=== PATIENT | male | born 1975 | race Two or more races ===

== ENCOUNTER 2019-08-18 13:09 | Emergency (ER) | payer SELFPAY ==
[2019-08-18 13:14] VITALS: BP 166/95
--- NOTE | 2019-08-18 14:15 | ED ---
Laceration/Wound HPI - HPI Summary HPI Summary: This patient is a 43-year-old otherwise healthy male presenting to the ED with a left hand laceration which occurred approximately 6 PM last evening. He states he was cutting something at work when the knife slipped and injured his left palm. History of present illness is obtained through interpreter for the deaf using Kite. Laceration approximately 2 cm in length, very wide yet superficial. Fat exposed. Pain is currently rated a 6/10, constant and aching. Bleeding is well controlled prior to arrival. Last tetanus one year ago. - History of Current Complaint Stated Complaint: LAC LT HAND PER PT Time Seen by Provider: 08/18/19 13:18 Hx Obtained From: Patient Mechanism of Injury: Sharp/Blunt Trauma Onset/Duration: Sudden Onset Aggravating: Movement Alleviating: Compression Timing: Constant Onset Severity: Mild Current Severity: Mild Pain Intensity: 2 Pain Scale Used: 0-10 Numeric Associated Signs & Symptoms: Negative Related Hx: Dominant Hand (Right) - Allergy/Home Medications Allergies/Adverse Reactions: Allergies Allergy/AdvReac Type Severity Reaction Status Date / Time No Known Allergies Allergy Verified 08/18/19 13:14 PMH/Surg Hx/FS Hx/Imm Hx Previously Healthy: Yes - Immunization History Hx Pertussis Vaccination: No Immunizations Up to Date: Yes Infectious Disease History: No Infectious Disease History: Denies: Traveled Outside the [place] in Last 30 Days - Social History Occupation: Employed Full-time Lives: With Family Alcohol Use: None Hx Substance Use: No Substance Use Type: Reports: None Hx Tobacco Use: No Smoking Status (MU): Never Smoked Tobacco Review of Systems Negative: Fever, Chills, Fatigue, Skin Diaphoresis Negative: Palpitations, Chest Pain Negative: Shortness Of Breath, Cough Genitourinary: Negative Positive: no symptoms reported, see HPI Negative: Arthralgia, Myalgia Positive: Other - laceration of the L palm Neurological: Negative All Other Systems Reviewed And Are Negative: Yes Physical Exam Triage Information Reviewed: Yes Vital Signs On Initial Exam: Initial Vitals Temp Pulse Resp BP Pulse Ox 97.9 F 104 16 166/95 99 08/18/19 13:10 08/18/19 13:10 08/18/19 13:10 08/18/19 13:10 08/18/19 13:10 Vital Signs Reviewed: Yes Appearance: Positive: Well-Appearing, Well-Nourished Skin: Positive: Warm, Skin Color Reflects Adequate Perfusion, Other - laceration of the L palm - ulnar side - 2cm in length, 1cm in width, superficial Head/Face: Positive: Normal Head/Face Inspection Eyes: Positive: EOMI, HOWIE, Conjunctiva Clear Neck: Positive: Supple, No Lymphadenopathy Respiratory/Lung Sounds: Positive: Clear to Auscultation, Breath Sounds Present Cardiovascular: Positive: RRR, Pulses are Symmetrical in both Upper and Lower Extremities Musculoskeletal: Positive: Normal, Strength/ROM Intact Psychiatric: Positive: Affect/Mood Appropriate AVPU Assessment: Alert Procedures - Sedation Patient Received Moderate/Deep Sedation with Procedure: No - Laceration/Wound Repair L hand Location: upper extremity Description: Linear Anesthesia: Local, 1.0% Length, Depth and Shape: laceration of the L palm - ulnar side - 2cm in length, 1cm in width, superficial Betadine Prep?: No Irrigated w/ Saline (ccs): 40 Laceration/Wound Explored: clean Suture Type: Prolene - 4-0 Number of Sutures: 5 Layer Closure?: No Sterile Dressing Applied?: No Diagnostics - Vital Signs Vital Signs Temp Pulse Resp BP Pulse Ox 08/18/19 13:52 97.9 F 100 16 166/95 99 08/18/19 13:10 97.9 F 104 16 166/95 99 - Laboratory Lab Statement: Any lab studies that have been ordered have been reviewed, and results considered in the medical decision making process. Laceration Repair Course/Dx - Course Course Of Treatment: Cleanse wound thoroughly. 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 For this reason, closure is warranted. 1ml lidocain without epi used as local anesthetic. 5 sutures using 4-0 prolene using simple interrupted technique. Occlusive gauze wrapped, gauze applied. Patient will have suture removal in 7 days. Given instructions for care. ABX given. - Differential Dx Differental Diagnoses: Laceration - Clinical Impression Provider Diagnoses: Laceration Discharge ED - Sign-Out/Discharge Documenting (check all that apply): Patient Departure - Discharge Plan Condition: Stable Disposition: HOME Prescriptions: Cephalexin CAP* [Keflex CAP*] 500 mg PO TID #15 cap MDD 3 Patient Education Materials: Care For Your Stitches (ED), Laceration (ED) Print Language: PORTUGUESE Referrals: No Primary Care Phys,NOPCP [Primary Care Provider] - Additional Instructions: Keep the area covered for 24 hours Cleanse wound daily with soap and water - do not scrub Change out bandage with gauze and occlusive wrap x 2-3 days The last 2-3 days leave open to air, unless you are in a dirty environment or are working Suture removal in 7 days - Billing Disposition and Condition Condition: STABLE Disposition: Home - Attestation Statements Provider Attestation: I was available for consult. This patient was seen by the GUAD[facility]. The patient was not presented to, seen by, or examined by me. Semaj Salgado MD
== END 2019-08-18 13:51 | disposition home or self-care (01) ==
LOC: ED 13:09
DX: S61.412A Laceration without foreign body of left hand, initial encounter (principal); W26.0XXA Contact with knife, initial encounter; Y92.89 Other specified places as the place of occurrence of the external cause; Y99.0 Civilian activity done for income or pay
CPT/HCPCS: 12001; 99282